=== PATIENT | female | born 1930 | race Caucasian/White ===

== ENCOUNTER → 2016-12-01 | Outpatient (CLI) | payer OTHER ==
--- NOTE | ~2016-12-01 | 2DMMODE ---
[facility] [place] [address] 2 D/M-MODE ECHOCARDIOGRAM Name: VALERIANO PLATT Room #: REG CL [facility]#: [id number] Admission: 12/01/16 Attend Phys: Johnny García MD Discharge: Date of : 30 Date of Service: 12/01/16 1105 Report #: [id number] THIS REPORT FOR: //name// Transthoracic Echocardiography Ordering physician: Johnny García Referring physician: Abdelrahman Loera Parveen Business Continuity Manager: ELINA Broussard Indications/History: Dizziness, HLP. BP: 138 / HR: 71bpm Height: 61in Weight: 124.7lb 80 Study data: M-mode, complete 2D, complete spectral Doppler, and color Doppler. Location: Echo laboratory. Routine. Image quality was good. 2D measurements Normal Normal LVID ED 37.3mm 36-57 IVS ED 8.3mm 6-11 LVID ES 25.8mm 23-40 LVPW ED 8.8mm 6-11 LA volume 21ml/m2 16-28 AoRoot diam 27.5mm 21-37 index ED LVOT diameter 18mm 18-23 Findings: Left ventricle: The cavity size was normal. Wall thickness was normal. Systolic function was normal. The estimated ejection fraction was in the range of 60% to 65%. Wall motion was normal. Right ventricle: The cavity size was normal. Systolic function was normal. Right atrium: The atrium was normal in size. Left atrium: The atrium was normal in size. Volume index: 21ml/m2 (S). Aortic valve: Trileaflet; mildly thickened, mildly calcified leaflets. Doppler: There was no stenosis. Mild regurgitation. Peak velocity: 129.8cm/s (S). [facility] [place] [address] 2 D/M-MODE ECHOCARDIOGRAM Name: VALERIANO PLATT Room #: REG ANUSHKA Means.R.#: [id number] Admission: 12/01/16 Attend Phys: Johnny García MD Discharge: Date of : 30 Date of Service: 12/01/16 1105 Report #: [id number] Mitral valve: Structurally normal valve. Doppler: There was no evidence for stenosis. Mild regurgitation. Peak E-wave velocity: 115cm/s. Peak gradient: 5.3mm Hg (D). Peak A-wave velocity: 102.6cm/s. Tricuspid valve: Structurally normal valve. Doppler: There was no evidence for stenosis. Mild regurgitation. Regurgitant peak velocity: 244.2cm/s. Peak RV-RA gradient: 24mm Hg (S). Pulmonic valve: Structurally normal valve. Doppler: There was no evidence for stenosis. No regurgitation. Pericardium: There was no pericardial effusion. Aorta: Aortic root: The aortic root was normal in size. Pulmonary artery: Systolic pressure was estimated to be 29mm Hg. Diastolic function: Features are consistent with a pseudonormal left ventricular filling pattern, with concomitant abnormal relaxation and increased filling pressure (grade 2 diastolic dysfunction). Systemic veins: Inferior vena cava: The vessel was normal in size; the respirophasic diameter changes were in the normal range (= 50%). Conclusions 1. Left ventricle: The cavity size was normal. Wall thickness was normal. Systolic function was normal. The estimated ejection fraction was in the range of 60% to 65%. 2. Left atrium: The atrium was normal in size. 3. Aortic valve: Trileaflet; mildly thickened, mildly calcified leaflets. Mild regurgitation. 4. Mitral valve: Mild regurgitation. 5. Tricuspid valve: Mild regurgitation. 6. Pericardium, extracardiac: There was no pericardial effusion. <ELECTRONICALLY SIGNED> By: Grant Newman MD 12/01/16 1602 1105 01 Grant Newman MD /danelle
== END ==
LOC: ULTRA 10:10
DX: R55 Syncope and collapse (principal)